=== PATIENT | female | born 2000 | race Caucasian/White ===

== ENCOUNTER 2021-02-23 12:13 | Inpatient (IN) ==
[2021-02-23] MEDS ORDERED: SODIUM CHLORIDE 0.65% NA SOLN 45 ML (OCEAN) PRN (12:31)
[2021-02-23] MEDS ORDERED: BISMUTH SUBSALICYLATE LIQD 236 ML PO PRN (12:31)
[2021-02-23] MEDS ORDERED: MAGNESIUM HYDROXIDE SUSP 30 ML UDC PO PRN (12:31)
[2021-02-23] MEDS ORDERED: ALUMINUM/MAGNESIUM SUSP 30 ML UDC PO PRN (12:31)
[2021-02-23] MEDS ORDERED: ACETAMINOPHEN 325 MG TAB PO PRN (12:31)
[2021-02-23] MEDS ORDERED: hydrOXYzine HCl 25 MG TAB PO PRN ×2 (12:31)
[2021-02-23] MEDS ORDERED: PATIENT'S ALLERGY INFO NEEDS ENTERED SCH (12:45)
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
[2021-02-23] MEDS ORDERED: PATIENT'S HEIGHT AND/OR WEIGHT NEEDED SCH (14:15)
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
[2021-02-25] MEDS: MELATONIN 3 MG TAB PO SCH (22:09)
--- NOTE | 2021-02-26 18:55 | Psychiatric Progress Note ---
Date of Service February 26, 2021 Impression / Recommendations Impression The patient is a 21 year old with a history of depression, anxiety, PTSD, and possible ASD and multiple prior psychiatric hospitalizations who was admitted for suicide attempt via overdose of lamictal. High acute risk of self-harm given severity of attempt, current mood symptoms, prior SA, hx trauma and hx multiple prior psych hospitalizations. The patient is deemed unstable and requires psychiatric hospitalization for diagnostic clarification, safety and stabilization, medication management and development of further coping skills. Diagnostically consistent with MDD and PTSD with possible BPD traits. Paranoia from recent events of being followed by a car and viewed to be consistent with PTSD, no evidence of psychosis. Holding STEVEDORE DOCK lamictal given recent overdose and will consider if SSRI would be appropriate, she hasn't tried fluoxetine before. Holding STEVEDORE DOCK buspar given recent overdose. Will attempt to contact her outpatient psychiatrist for further collateral. 02/26/21-showing ongoing improvement in mood, no signs of paranoia/psychosis, improvement in sleep with melatonin (1) MDD (major depressive disorder), recurrent episode, severe: (2) Suicide attempt by drug overdose: (3) Post traumatic stress disorder (PTSD): (4) ETHEL (generalized anxiety disorder): 02/26/21: Improved sleep with melatonin 6 mg qhs. No signs of psychosis. Remains future-oriented with stable mood and no SI. Reviewed safety plan with her. 02/25/21: Had some anxiety last night which made it more difficult to fall asleep, she would like to have melatonin 6 mg qhs for tonight. Does not want to start any other medications for mood. No signs of paranoia or psychosis related to PTSD. 02/24/21: She prefers not to start a new medication at this time. Discussed again risks/benefits/alternatives for treatment including fluoxetine but she declines at this. Reviewed records from OSH-normal TSH in addition to labwork reviewed on admission yesterday. 02/23/21: The patient was admitted to the [facility] ([facility] inpatient mental health unit) on q15 min checks (behavioral with suicide precautions) for safety. The patient will participate in group, recreational, and milieu therapies and will be offered additional individual and family sessions as clinically appropriate. Holding STEVEDORE DOCK medications of lamictal and buspar given lamictal overdose yesterday. No current signs of acute toxicity, will monitor closely for potential development of rash/Vera Ken syndrome due to ingestion. Inventory Assets Strengths: supportive boyfriend, outpatient services Needs: coping skills, medication adjustment Risk Factors Assessment Male: No : Yes Do You Have Access To A Gun?: No Health Problems: No Mental Health Diagnoses: Yes Substance Use Disorders: No Previous Attempt: Yes Previous Attempt; Highly Lethal: Yes Previous Attempt; Planned: Yes Previous Attempt; Didn't Tell Anyone: No Family History of Suicide: Yes Previous Psychiatric Hospitalization: Yes Hopelessness: No Smoker: No Protective Factors Assessment Employed: Yes Stable Relationships: Yes Supportive Family: Yes Good Rapport with Provider: Yes Interval History Identifying Information The patient is a 21 year old with a history of depression, anxiety, PTSD, and multiple prior psychiatric hospitalizations who was admitted for suicide attempt via overdose of lamictal. Chief Complaint "I feel good". Review of Systems Sleep Information Total Hours of Sleep: 7.75 Sleep Comments: pt appeared to sleep 1.5 hrs during evening shift. pt awake during the night journaling for about 2hrs. pt on q-15 minute checks. Meal Information Percent Meal Consumed - Breakfast: 100 Percent Meal Consumed - Lunch: 100 Percent Meal Consumed - Dinner: 100 Nutrition Comment: declined Subjective Subjective Patient was seen & assessed and interval progress reviewed with treatment team nursing and social work. Sleep improved with melatonin last night which she found very helpful. Denies any pain or other symptoms today other than some discomfort from site where she had IV placed following overdose. Mood remains stable. Participating in groups. Physical Exam Psychiatric Orientation: alert and oriented x 3 Apperance: appropriately dressed and appropriately groomed Eye Contact: good eye contact Motor Behavior: steady gait and station and no abnormal motor movements Speech: normal rate/rhythm/volume of speech Affect: euthymic affect Mood: no depressed mood Thought Process: goal directed thought process Thought Content: reality based without delusions Suicidal Thoughts: denies suicidal thoughts Homicidal Thoughts: denies homicidal thoughts Hallucinations: no auditory hallucinations and no visual hallucinations Cognition: recent memory grossly intact, remote memory grossly intact, attention grossly intact and language grossly intact Estimated Intelligence: consistent with education level Insight: + fair insight Judgement: + fair judgement Vital Signs (Past 24 Hours) Last Vital Signs Temp 36.6 C 02/26/21 06:50 Pulse 82 02/26/21 06:52 Resp 15 02/26/21 06:50 BP 130/87 02/26/21 06:52 Pulse Ox 99 02/26/21 06:50 Results & Data ([facility] [[email or web address] Current Inpatient Medications Current Inpatient Medications: Current Inpatient Medications Acetaminophen (Acetaminophen 325 Mg Tab) 650 mg PO Q4H PRN PRN Reason: Headache or Minor Fever Stop: 03/25/21 12:30 Al Hydrox/Mg Hydrox/Simethicone (Aluminum/Magnesium Susp 30 Ml Udc) 30 ml PO Q4H PRN PRN Reason: GI Upset Stop: 03/25/21 12:30 Bismuth Subsalicylate (Bismuth Subsalicylate Liqd 236 Ml) 15 ml PO PRN PRN PRN Reason: Loose Stool Stop: 03/25/21 12:30 Hydroxyzine HCl (Hydroxyzine Hcl 25 Mg Tab) 50 mg PO HSZ PRN PRN Reason: Insomnia Stop: 03/25/21 12:30 Hydroxyzine HCl (Hydroxyzine Hcl 25 Mg Tab) 25 mg PO Q4H PRN PRN Reason: Anxiety Stop: 03/25/21 12:30 Magnesium Hydroxide (Magnesium Hydroxide Susp 30 Ml Udc) 30 ml PO DAILY PRN PRN Reason: Constipation Stop: 03/25/21 12:30 Melatonin (Melatonin 3 Mg Tab) 6 mg PO HS HEMALATHA Stop: 03/27/21 21:59 Last Admin: 02/25/21 22:09 Dose: 6 mg Documented by: Sodium Chloride (Sodium Chloride 0.65% Na Soln 45 Ml ([place])) 1 - 2 sprays NA PRN PRN PRN Reason: Nasal Dryness/Congestion Stop: 03/25/21 12:30 Mental Health & Subst Abuse Tx Psychiatrist Name of Psychiatrist: [facility] Psych[facility]rist[facility] Date of Appointment with Psychiatrist: 03/12/21 Time of Appointment with Psychiatrist: 11:45 AM Psychiatric Appointment Comment: via Zoom Therapist Name of Therapist: [facility] Date of Therapist Appointment: 03/06/21 Time of Therapist Appointment: 12pm Therapy Appointment Comment: via zoom Post Discharge Appointments Primary Care Physician Name Of Family Doctor: [facility] Date of Appointment with PCP: 03/11/21 Time of Appointment with PCP: 10am Provider Appointment Comment: [place] Harmon Contact Information Discharge Discharge Address: [address], [place] [address]
[2021-02-26] MEDS: MELATONIN 3 MG TAB PO SCH (21:37)
--- NOTE | 2021-02-27 09:47 | Discharge Summary ---
Date of Service February 27, 2021 History of Present Illness Leeann presents for admission following a suicide attempt via overdose of lamictal (80-100 tablets of her 25mg script). She initially presented to the [facility] ED, received treatment for the overdose with lorazepam and once medically cleared was transferred here for psychiatric treatment. She endorses worsening depression over the last few weeks in the context of multiple psychosocial stressors including stress from falling behind in her college classes, difficult relationship with her parents and recently worsening PTSD symptoms including paranoia after feeling as though she was being targeted and followed by a car and that she might be kidnapped a few days ago. She was walking near campus and a car seemed to be speeding up to follow her, she wasn't sure what the pile driver operator barge mounted's intention was but she felt scared and went back to her dorm. This promoted flashbacks, hypervigilance, feeling unsafe, anxiety, decreased sleep, and re-experiencing of past traumatic events. The worsening PTSD caused her to feel increasingly depressed and overwhelmed. She experienced intermittent suicidal thoughts over the last two weeks which intensified yesterday and resulted in her suicide attempt via overdose. She went to a secluded bathroom on campus, took the lamictal script she had not yet started and sent a [employer] message to her boyfriend who then reached out to friends who helped encourage her to seek help at the local ED about 1 hour after the ingestion. She had almost her full script of lamictal available as her outpatient psychiatrist had written the script to start in early November before she returned to school and she took it for a few days but then stopped it and buspar in November due to feeling dizzy and dehydrated through most of the fall semester. She was planning to restart the lamictal on Tuesday prior to her overdose. Currently she regrets her overdose attempt and denies current SI. Her mood remains depressed and anxious. Endorses symptoms of depression of low mood, decreased energy, decreased motivation, decreased concentration, anhedonia, decreased appetite and intermittent SI. She also has been experiencing significant anxiety with one panic attack about 3 weeks ago. Psychiatric ROS notable for: no hx leti, no hx psychosis, hx childhood trauma, no hx OCD, no hx eating disorders, hx self-harm but none within the last 2 years, hx one prior suicide attempt in high school via overdose. Physical Exam Vital Signs (Past 24 Hours) Last Vital Signs Temp 36.5 C 02/27/21 06:00 Pulse 65 02/27/21 06:42 Resp 16 02/27/21 06:00 BP 109/71 02/27/21 06:42 Pulse Ox 99 02/26/21 06:50 See admission H&P and DOD summary. Principal Diagnosis Post Traumatic Stress Disorder Psychiatric Data See daily stay summary. In short, patient was engaged with the social/therapeutic milieu of the unit, safety was maintained and the patient was cooperative with care. Medication changes included stopping prior to admission lamictal and buspar given lamictal overdose and her preference to not restart buspar. Discussed option of starting fluoxetine for PTSD but she declined starting this in the inpatient setting vocalizing her preference to consider starting this as an outpatient with her outpatient psychiatric provider. Melatonin 6 mg qhs prn was used during her stay with good effect for sleep, she prefers to get this as an OTC formulation after discharge so a prescription was not sent. She demonstrated stable mood, with no SI, bright affect, engagement in groups, and good insight about factors leading to her attempt as well as engagement with safety planning and future-orientation. No signs of paranoid ideation or psychosis in days leading up to discharge. A family session was held and safety plan was completed prior to discharge. Day of Discharge Assessment Today the patient voices readiness for discharge. They note improvement in mood and anxiety. They deny thoughts of harm to self or others. Thoughts are organized and they are clinically improved from admission. There is no evidence of psychosis. They improved in the hospital with support. They agree to take medications as prescribed and keep follow-up appointments. At the time of the discharge they are deemed to be stable and appropriate for outpatient level of care. They are not deemed to be at imminent risk of harm to self or others. They are aware of emergency and crisis services. Knows to call 911 or go to nearest emergency care center if in a crisis which cannot be handled as an outpatient. Transition of Care Transition Of Care Record: was reviewed with the patient Advance Directives Advance Directives Information Provided: Yes Advance Directives: No Mental Health Advance Directive: No Advance Directives on File: No Living Will: No Power of Heel Trimmer: No Advance Directives Reason:: Declines as Mental Health Visit. Risk Factors Assessment Male: No : Yes Do You Have Access To A Gun?: No Health Problems: No Mental Health Diagnoses: Yes Substance Use Disorders: No Previous Attempt: Yes Previous Attempt; Highly Lethal: Yes Previous Attempt; Planned: Yes Previous Attempt; Didn't Tell Anyone: No Family History of Suicide: Yes Previous Psychiatric Hospitalization: Yes Hopelessness: No Smoker: No Protective Factors Assessment Employed: Yes Stable Relationships: Yes Supportive Family: Yes Good Rapport with Provider: Yes Hospital Course (1) MDD (major depressive disorder), recurrent episode, severe: (2) Suicide attempt by drug overdose: (3) Post traumatic stress disorder (PTSD): (4) ETHEL (generalized anxiety disorder): 02/26/21: Improved sleep with melatonin 6 mg qhs. No signs of psychosis. Remains future-oriented with stable mood and no SI. Reviewed safety plan with her. 02/25/21: Had some anxiety last night which made it more difficult to fall asleep, she would like to have melatonin 6 mg qhs for tonight. Does not want to start any other medications for mood. No signs of paranoia or psychosis related to PTSD. 02/24/21: She prefers not to start a new medication at this time. Discussed again risks/benefits/alternatives for treatment including fluoxetine but she declines at this. Reviewed records from OSH-normal TSH in addition to labwork reviewed on admission yesterday. 02/23/21: The patient was admitted to the [facility] ([facility] mental health unit) on q15 min checks (behavioral with suicide precautions) for safety. The patient will participate in group, recreational, and milieu therapies and will be offered additional individual and family sessions as clinically appropriate. Holding SCOURING PADS SUPERVISOR medications of lamictal and buspar given lamictal overdose yesterday. No current signs of acute toxicity, will monitor closely for potential development of rash/Vera Ken syndrome due to ingestion. Mental Health & Subst Abuse Tx Psychiatrist Name of Psychiatrist: [facility] Psychiatrist's Date of Appointment with Psychiatrist: 03/12/21 Time of Appointment with Psychiatrist: 11:45 AM Psychiatric Appointment Comment: via Zoom Psychiatrist Release of Information: Obtained, Reviewed and Signed Therapist Name of Therapist: [facility] Date of Therapist Appointment: 03/06/21 Time of Therapist Appointment: 12pm Therapy Appointment Comment: via zoom Therapist Release of Information: Obtained, Reviewed and Signed Post Discharge Appointments Primary Care Physician Name Of Family Doctor: [facility] Date of Appointment with PCP: 03/11/21 Time of Appointment with PCP: 10am Provider Appointment Comment: [address] [place] [address] Primary Care Release of Information: Obtained, Reviewed and Signed Contact Information Discharge Discharge Address: [address] [place] [id number] Discharge Plan Discharge Items Patient Disposition: Home - Self-Care Reason For Visit: DEPRESSION Discharge Diagnosis: Post Traumatic Stress Disorder Condition on Discharge: Good Activity: Resume your previous activity Non-emergency contact: Primary Care Provider, Psychiatrist and Therapist Call non-emergency contact if: you have any medication questions and your symptoms worsen Follow-up/Referrals: PCP,NO [Primary Care Provider] - Diet: Regular Addtl Attending Provider Instructions: SPECIAL CARE INSTRUCTIONS: 1. Follow through with your scheduled aftercare appointments. If unable to keep an appointment, please call to reschedule. 2. Take your medication only as prescribed. Medication should not be changed or stopped without the approval of your doctor. In the event of worsening symptoms or concerns about side effects, contact your doctor immediately. 3. Utilize new healthy coping skills, anger management skills, and stress management skills learned during your hospitalization. Journal feelings and process them with a support person. Identify stressors or situations that may result in relapse, deterioration or inappropriate behaviors and develop a plan to deal with those issues. 4. If your coping skills are ineffective and you are in crisis, contact your outpatient providers for direction. If unable to reach your providers, please call the [facility] CRISIS LINE AT , go to the [facility] walk-in center at [address], [address], [place], or go to the closest Emergency Room. 5. Avoid alcohol and un-prescribed drugs. 6. You have been provided with the Mental Health Advance Directives Pamphlet for your review. 7. Your condition is stable for discharge to outpatient level of care, but recovery is an ongoing process. Ifthoughts to harm yourself or others return, follow the safety plan developed during your stay. Planning for a safe return home includes securing weapons. Our treatment team recommends weaponsbe removed from the home until your outpatient provider reassesses your progress. In rare cases where the items themselvescannot be removed, guns and ammunitionshould be secured separatelyand keys stored by a reliable personoutside of the home. If you were admitted on an involuntary commitment, the police or other legal authorities may be involved in this process. AFTERCARE APPOINTMENTS: * Please call your insurance company prior to your scheduled appointment to confirm your aftercare providers are covered. Take your insurance information to your appointments. WHO TO CALL AND WHEN: Medical Emergencies: For questions or emergencies related to your hospital stay, please contact the Inpatient Behavioral Health Unit at [phone]. A guest service agent is on-call 15/11 for the Behavioral Health Unit for emergencies At any time you feel your situation is an emergency, you may also call 911 immediately. Pending Studies at Discharge: No Stand-Alone Forms: My [facility] Medications and DC Order Prescriptions: Discontinued lamotrigine 25 mg Tablet 25 mg PO DAILY RF: 0 buspirone 5 mg Tablet 5 mg PO TID RF: 0 Discharge Orders: Discharge Order (Routine); Ordered 02/27/21 Ordered By: Graciela Ford/Other Patient Handouts: Coping with PTSD, Depression: Tips to Help Yourself Admission Data Admit Date/Time: 02/23/21 12:54 Attending Provider: Graciela Berry Admit Provider: Graciela Berry Primary Care Provider: PCP,AMBER Coding Level of Care Code 67217 D/C day mgmt > 30 min Diagnoses MDD (major depressive disorder), recurrent episode, severe F33.2 Suicide attempt by drug overdose T50.902A Post traumatic stress disorder (PTSD) F43.10 ETHEL (generalized anxiety disorder) F41.1 Time Spent (min) 35
[2021-02-27] MEDS ORDERED: DESTROY THIS MEDICATION ONE (09:56)
--- NOTE | 2021-03-09 09:47 | Coding Query ---
CODING QUERY To promote full compliance with coding requirements relating to patient care, provider participation is requested in all cases of remote inpatient coder uncertainty. Please assist us with the question(s) below: Coding Question(s): Major Depressive Disorder, recurrent episode, severe is documented throughout the record and Post Traumatic Stress Disorder is also documented and is documented on the Discharge Summary under Principal Diagnosis. It is not clear if the both diagnosis were equally treated during the admission or if PTSD was most treated. Please specify below in your clinical opinion. (X ) Both PTSD and Major Depressive Disorder, recurrent episode, severe were equally treated ( ) PTSD was treated more ( ) Major Depressive Disorder, recurrent episode, severe was treated more ( ) Other: Please Specify Physician's Response(s): Both were treated equally. Thanks. Thank you Serina Umanzor Principal Diagnosis: "that condition established after study, to be chiefly responsible for occasioning the admission of the patient to the hospital for care." Co-Existing Principal Diagnosis: "when two or more diagnoses equally meet the criteria for principal diagnosis as determined by the circumstances of admission, diagnostic work up, and/or therapy provided, and the Alphabetic Index, Tabular List, or another coding guideline does not provide sequencing direction, any one of the diagnoses may be sequenced first." "When the physician has documented what appears to be a current diagnosis in the body of the record, but has not included the diagnosis in the final diagnostic statement, the physician should be asked whether the diagnosis should be added." (Source Coding [facility] 2 QTR90. p3-4) RAMONA
== END 2021-02-27 11:12 | disposition home or self-care (01) | DRG 885 ==
LOC: 3S 12:54